=== PATIENT | female | born 1960 ===

== ENCOUNTER 2016-11-26 08:01 | Inpatient (IN) | payer BC ==
[2016-11-26 08:01] VITALS: BMI 27.1
[2016-11-26 10:14] LABS: BASO % 0.3 % (0.0-2.0); EOS % 0.3 % (0.0-4.0); LYMPH # 1.1 K/uL (1.0-4.3); LYMPH % 19.3 % (20.0-40.0); MEAN CELL VOLUME 87.3 fL (81.0-99.0); MEAN CORPUSCULAR HEMOGLOBIN 28.9 pg (27.0-31.0); MEAN CORPUSCULAR HGB CONC 33.1 g/dL (33.0-37.0); MEAN PLATELET VOLUME 8.1 fL (7.2-11.7); MONO # 0.4 K/uL (0.0-0.8); MONO % 6.2 % (0.0-10.0); RED CELL DISTRIBUTION WIDTH 14.3 % (11.5-14.5); WHITE BLOOD COUNT 5.9 K/uL (4.8-10.8)
--- NOTE | 2016-11-26 10:21 | RAD ---
PROCEDURE: CHEST RADIOGRAPH, 1 VIEW HISTORY: Abdominal pain COMPARISON: None available. FINDINGS: LUNGS: Clear. PLEURA: No pneumothorax or pleural fluid seen. CARDIOVASCULAR: Normal. OSSEOUS STRUCTURES: No significant abnormalities. VISUALIZED UPPER ABDOMEN: Normal. OTHER FINDINGS: None. IMPRESSION: No active disease.
[2016-11-26 10:23] LABS: CHLORIDE 97 mmol/L (98-107)
[2016-11-26 10:24] LABS: POTASSIUM 3.7 mmol/L (3.6-5.2); SODIUM 134 mmol/L (132-148)
[2016-11-26 10:26] LABS: ALB/GLOB RATIO 1.2 (1.0-2.1); ALKALINE PHOSPHATASE 90 U/L (38-126); ALT/SGPT 29 U/L (9-52); AST/SGOT 22 U/L (14-36); BILIRUBIN,TOTAL 0.6 mg/dL (0.2-1.3); BLOOD UREA NITROGEN 6 mg/dL (7-17); CARBON DIOXIDE 25 mmol/L (22-30); GFR AFRICAN-AMERICAN > 60; GLUCOSE,RANDOM 103 mg/dL (65-105); TOTAL PROTEIN 8.4 g/dL (6.3-8.3)
[2016-11-26 10:27] LABS: ALCOHOL SERUM < 10 mg/dl (0-10); CALCIUM 9.7 mg/dl (8.6-10.4)
[2016-11-26 10:40] LABS: RBC URINE 8 /hpf (0-3); URINE BILIRUBIN NEGATIVE (NEGATIVE); URINE BLOOD 1+ (NEGATIVE); URINE COLOR Yellow (YELLOW); URINE GLUCOSE (UA) NORMAL (Normal); URINE KETONE NEGATIVE (NEGATIVE); URINE LEUKOCYTE ESTERASE NEG Leu/uL (Negative); URINE PROTEIN NEGATIVE (NEGATIVE); URINE UROBILINOGEN NORMAL mg/dL (0.2-1.0); WBC URINE 2 /hpf (0-5)
[2016-11-26] MEDS ORDERED: Sodium Chloride 0.9% 1,000 ML IV ONE (10:50)
[2016-11-26] MEDS ORDERED: Sodium Chloride 0.9% 1,000 ML ONE (10:57)
--- NOTE | 2016-11-26 10:57 | C.PDOC ---
History Of Present Illness 56 year old female presents to the ED with complaints of intermittent difficulty swallowing, slight abdominal pain, mouth dryness, and vomiting liquids for one month. She is also seeking evaluation for depression and hearing voices for "awhile." Patient is a poor historian and not answering questions directly. states she has been hearing voices for several weeks. Patient denies dysuria, GI bleeding, fever, recent travel, back pain, chest pain, shortness of breath, diarrhea, or homicidal ideations. Time Seen by Provider: 11/26/16 08:15 Chief Complaint (Nursing): Psychiatric Evaluation History Per: Patient History/Exam Limitations: no limitations Onset/Duration Of Symptoms: Intermittent Episodes (one month of difficulty swallowing), Persistent (hearing voices and depression for "several weeks" ) Current Symptoms Are (Timing): Still Present Suicide/Self Injury Attempted (Context): None Modifying Factor(s): None Associated Symptoms: Depression, Suicidal Thoughts (hearing voices telling her to commit suicide ) Involuntary Hold By: None Recent travel outside of the [place]: No Additional History Per: Past Medical History Reviewed: Historical Data, Nursing Documentation, Vital Signs Vital Signs: Last Vital Signs Temp 96 F L 11/26/16 08:05 Pulse 76 11/26/16 08:05 Resp 18 11/26/16 08:08 BP 124/87 11/26/16 08:05 Pulse Ox 99 11/26/16 14:36 - Medical History PMH: Anxiety, Depression, Hypercholesterolemia Family History: States: Unknown Family Hx - Social History Hx Alcohol Use: No Hx Substance Use: No Review Of Systems Constitutional: Negative for: Fever, Chills Cardiovascular: Negative for: Chest Pain Respiratory: Negative for: Shortness of Breath Gastrointestinal: Positive for: Vomiting, Abdominal Pain. Negative for: Diarrhea, Constipation Genitourinary: Negative for: Dysuria Musculoskeletal: Negative for: Back Pain Psych: Positive for: Depression, Suicidal ideation Physical Exam - Physical Exam Appears: Non-toxic, No Acute Distress Skin: Warm, Dry Head: Atraumatic, Normacephalic Eye(s): bilateral: Normal Inspection, PERRL, EOMI Ear(s): Bilateral: Normal Oral Mucosa: Moist Throat: Normal, No Erythema, No Exudate Neck: Supple Chest: Symmetrical, No Deformity Cardiovascular: Rhythm Regular, No Murmur Respiratory: No Rales, No Rhonchi, No Wheezing, Other (clear to auscultation bilaterally ) Gastrointestinal/Abdominal: Soft, No Tenderness, No Distention, No Guarding, No Rebound Extremity: Normal ROM, No Tenderness Neurological/Psych: Oriented x3 ED Course And Treatment - Laboratory Results Result Diagrams: 11/26/16 10:04 11/26/16 10:04 O2 Sat by Pulse Oximetry: 99 (RA) Progress Note: Abdomen pelvis CT and labs were ordered. Patient was given Pepcid , Toradol, Zofran, and IV fluids. Medical Decision Making Medical Decision Making: CT scan and lab work negative. Patient is medically cleared for psych evaluation and possible admission. On re-exam, the patient has no abdominal pain. Abdomen is soft, non-tender and patient is tolerating PO well Disposition - Disposition Disposition: HOSPITALIZED Disposition Time: 14:52 Condition: GOOD Forms: [facility] (Turkish) - Clinical Impression Clinical Impression: Schizophrenia, Moderate major depression, single episode - PA / CERTIFIED ORTHOTIC FITTER / Resident Statement MD/DO has reviewed & agrees with the documentation as recorded. - Scribe Statement The provider has reviewed the documentation as recorded by the Scribpilo Herring All medical record entries made by the Valarieibpilo were at my direction and personally dictated by me. I have reviewed the chart and agree that the record accurately reflects my personal performance of the history, physical exam, medical decision making, and the department course for this patient. I have also personally directed, reviewed, and agree with the discharge instructions and disposition.
[2016-11-26] MEDS ORDERED: Iodixanol 320 MG/ML 100 ML BOTTLE IV ONE (13:52)
--- NOTE | 2016-11-26 14:32 | CT ---
PROCEDURE: CT Abdomen and Pelvis with contrast HISTORY: epigastric abd pain, vomiting COMPARISON: None. TECHNIQUE: Contrast dose: Visipaque 320, 100 cc. Radiation dose: Total exam DLP = 298.46 mGy-cm. This CT exam was performed using one or more of the following dose reduction techniques: Automated exposure control, adjustment of the mA and/or kV according to patient size, and/or use of iterative reconstruction technique. FINDINGS: LOWER THORAX: Unremarkable. LIVER: Moderate hepatic steatosis is appreciate without discrete hepatic mass or significant intrahepatic biliary dilatation appreciated. GALLBLADDER AND BILE DUCTS: Unremarkable. PANCREAS: Unremarkable. No gross lesion or ductal dilatation. SPLEEN: Unremarkable. ADRENALS: 1.2 cm moderately lucent lesion is seen related to the medial limb of the right adrenal gland 31 Hounsfield units. This is higher than can be ascribed to a definite benign adrenal adenoma and follow-up MRI is advised on elective basis. The left adrenal gland appears normal. KIDNEYS AND URETERS: Unremarkable. No hydronephrosis. No solid mass. VASCULATURE: Unremarkable. No aortic aneurysm. BOWEL: The stomach is collapsed and poorly evaluated. No bowel obstruction. No gross mural thickening. APPENDIX: Normal appendix. PERITONEUM: Unremarkable. No free fluid. No free air. LYMPH NODES: Unremarkable. No enlarged lymph nodes. BLADDER: Unremarkable. REPRODUCTIVE: Unremarkable. BONES: No acute fracture. OTHER FINDINGS: None. IMPRESSION: No definite acute abdomen or pelvic findings by standard CT criteria. Lack oral contrast limits evaluation, particularly of the bowel. 1.2 cm right adrenal nodule is appreciated which is indeterminate. Follow-up MRI is advised on elective basis. Hepatic steatosis.
--- NOTE | 2016-11-26 16:35 | PCM.BM ---
<Johanny Junior M - Last Filed: 11/26/16 16:33> Treatment Plan Problems - Problems identified on initial assessmt Depression Date Initiated: 11/26/16 Time Initiated: 16:34 Assessment reference: NA Status: Active Treatment assets and liabiliti Patient Assests: adapts well, cooperative, negotiates basic needs, cognitively intact Patient Liabilities: financial problems - Milieu Protocol Maintain good personal hygiene: daily Encourage regular showers, daily Remind patient to perform daily oral care Conduct patient checks and document Observation sheet: Q15 minutes Maintain personal safety: every shift Educate patient to report safety concerns to staff, every shift Monitor environment for contraband/sharps Medication safety: Monitor for expected outcome, potential side effects: every shift, Assess barriers to learning: every shift, Assess readiness for medication education: every shift <Twyla Chris - Last Filed: 11/27/16 11:01> - Diagnosis (1) Major depressive disorder, single episode, severe, with psychosis Status: Acute Interventions: 11/27/16 11:01 * Assess/adjust medications daily and /or as needed * See patient on an individual basis 7x/week to assess level of depressive behaviors and hallucinations. * Discuss risks, benefits, side effects and alternatives of medications <Carrol Bernal - Last Filed: 11/27/16 11:05> Family Contact Family involvement: Family/SO is involved Family contact: Patient agrees to contact Family contact name: Zarina- Family contacted how many times per week?: 1 - Goals for Treatment Patient goals for treatment: "I want to see the therapist." Discharge/Continuing Care - Education Needs Education Needs: Family Nutrition, Patient Medication, Patient Coping Skills, Significant Other Personal Hygiene/Grooming - Discharge Discharge Criteria: Tolerates medication w/o severe side effects, Free of Suicidal thoughts, Reduction of target symptoms Discharge to:: Home, With Family - Treatment Team Participation Discussed with Family/SO: Yes Was Patient/Family/SO present at Treatment Team Meeting: Yes <Mars Olson - Last Filed: 11/29/16 11:53> - Diagnosis (1) Major depressive disorder, single episode with psychotic features Status: Acute Interventions: Assess/adjust medications daily and/or as needed SEE patient on him individual basis 7x/week to assess status of hallucinations. Discuss risks, benefits, side effects and alternatives of medications. 11/29/16 11:53
--- NOTE | 2016-11-27 11:01 | PCM.PSYCH ---
Initial Psychiatric Evaluation - Initial Psychiatric Evaluation Type of Admission: Voluntary Legal Status: Capacity Chief Complaint (in patient's own words): "I have feeling sad and down lately" Patient's Reaction to Hospitalization: Cooperative History of Present Illness and Precipitating Events: Pt is a 57 year old female with a PMH of High cholesterol and Depression that presented to the ED on 11/26/2016 for a depressed mood and hearing voices telling her to harm self. Pt is and has 4 children ages 30, 29, 20 and 18. She lives at home with her and children and is currently unemployed. Pt reports that she has been feeling "sad and down" for the last 20 days. She reports that she has had a decreased appetite with a weight loss of approximately 20 pounds and not sleeping well for the past few nights. She also reports that she did not mention her symptoms to her family but yesterday when she was speaking to a friend she reports "something told me to take my life", and it was then that she shared her symptoms with her who brought her to the ER. Pt reports that she was first diagnosed with depression at the age of [age] years old when she felt similar symptoms, however, this all occurred in [place] [facility]. Pt states that currently she follows up with her PCP who prescribes Lexapro 20mg for her depression. Pt denies other psychiatric admission or following up with a psychiatrist. She reports stopping her Lexapro approximately 3 months ago when she felt much better and her mood was good. However, 20 days ago she returned to her PCP upon the onset of her current symptoms and although she was prescribed Lexapro she did not take it because "I was afraid of the side effects". Pt currently denies any SI, hallucinations or hearing voices. Pt denies alcohol , tobacco and substance use. After care discussed. Pt states that she has no plans or thoughts of harming herself "since I love my family". Pt is interested in following up with a psychiatrist, continue her medications and a program such as [facility] where she can follow up with therapy and/or a counselor. Pt is encouraged to do so. Current Medications: Active Medications Generic Name Dose Route Start Last Admin Trade Name Freq PRN Reason Stop Dose Admin Diphenhydramine HCl 50 mg 11/26/16 18:30 Benadryl PO Q8 PRN Insomnia Hydroxyzine HCl 25 mg 11/26/16 18:30 11/26/16 20:15 Atarax PO 25 mg Q6 PRN Administration Anxiety Ibuprofen 600 mg 11/26/16 18:30 Motrin Tab PO Q6 PRN Pain, moderate (4-7) Ondansetron HCl 4 mg 11/26/16 18:30 Zofran Tab PO Q6 PRN Nausea/Vomiting Past Psychiatric History - Past Psychiatric History Previous Treatment History: None Pertinent Medical Hx (Current Medical&Sleep Prob, Allergies): Allergies Allergy/AdvReac Type Severity Reaction Status Date / Time No Known Allergies Allergy Verified 11/26/16 08:06 Escitalopram [Lexapro] 20 mg PO DAILY 11/26/16 Review of Systems - Review of Systems All systems: reviewed and no additional remarkable complaints except - Neurological Neurological: UNREMARKABLE - Psychiatric Psychiatric: Anxiety, Auditory Hallucinations, Depression, Irritability, Paranoia, Suicidal Ideation. absent: Hallucinations, Homicidal Ideation Mental Status Examination - Personal Presentation Personal Presentation: Looks stated age - Affect Affect: Constricted, Depressed - Motor Activity Motor Activity: Calm - Reliability in Providing Information Reliability in Providing Information: Good - Speech Speech: Organized, Relevant, Coherent - Mood Mood: Depressed - Formal Thought Process Formal Thought Process: Hallucinations, Paranoia - Hallucinations/Delusions Hallucinations: Auditory Delusions: Persecution - Obsessions/Compulsions Obsessions: No Compulsions: No - Cognitive Functions Orientation: Person, Place, Situation, Time Sensorium: Alert Attention/Concentration: Attentive Abstract Thinking: Blanco Estimate of Intelligence: Average Judgement: Imparied, as evidence by: Poor judgement, Imparied, as evidence by: Lack of insight into illness Memory: Recent intact, as evidence by: Ability to recall events of the day, Remote intact, as evidenced by: Abilit to recall sig. life events - Risk Risk: Suicidal, Diminished functioning - Strength & Assets Inventory Strength & Assets Inventory: Intelligence, Family support, Skills, Spiritual affiliations, Cooperative DSM 5 DX - DSM 5 DSM 5 Diagnosis: Major depressive disorder single episode severe with psychotic features - Recommended/Plan of Treatment Treatment Recommendations and Plan of Treatment: Major depressive disorder single episode severe with psychotic features Cogentin 1mg PO HS EJSSICA Atarax 25mg PO Q6 PRN Risperidone 1 mg PO HS JESSICA Sertraline 50mg PO DAILY Trazodone 50mg PO HS JESSICA Attend groups and activities Individual therapy Psychoeducation and support Encourage compliance with meds and after care Refer to outpatient program Teach healthy lifestyle methods, i.e. diet, exercise, meditation 32 mins Projected ELOS: 4-5 days Prognosis: Good with treatment
--- NOTE | 2016-11-28 11:35 | PCM.PYCHPN ---
Psychiatric Progress Note - Psychiatric Progress Note Patient seen today, length of contact: 17 mins Patient Chief Complaint: "I am feeling a little better" Problems Identified/Issues Discussed: The pt is seen, chart reviewed, case discussed with staff. Pt states that she slept well last night and has seen no problems with her medications. Her only complaint is that her appetite is low and has not been eating very much. Denies SI and hallucinations. Support given, CBT and MT used briefly No new symptoms reported, improving slowly and needs more time No SEs from medications, risks discussed. After care discussed. Pt wants to follow up at the [facility] in order to see both a psychiatrist and a therapist. Pt is encouraged to do so. Medication Change: No Medical Record Reviewed: Yes Mental Status Examination - Cognitive Function Orientation: Person, Place, Situation, Time Memory: Intact Attention: WNL Concentration: WNL Association: WNL Fund of Knowledge: WNL - Mood Mood: Depressed - Affect Affect: Constricted, Depressed - Speech Speech: Appropriate - Formal Thought Process Formal Thought Process: No Impairment - Suicidal Ideation Suicidal Ideation: No - Homicidal Ideation Homicidal Ideation: No Goal/Treatment Plan - Goal/Treatment Plan Need for Continued Stay: Remain at risks for inpatient hospitalization, Discharge may exacerbated symptoms Progress Toward Problem(s) and Goals/Treatment Plan: Continue all medications as needed Attend groups and activities Individual therapy Psychoeducation and support Encourage compliance with meds and after care Refer to outpatient program Teach healthy lifestyle methods, i.e. diet, exercise, meditation 17 mins
--- NOTE | 2016-11-29 11:56 | PCM.PYCHPN ---
Psychiatric Progress Note - Psychiatric Progress Note Patient seen today, length of contact: 15 minutes Patient Chief Complaint: I'm feeling better Problems Identified/Issues Discussed: Patient seen. Chart reviewed. Case discussed with the staff. Issues related to illness and treatment were discussed with the patient. Reported compliant with treatment with no adverse affects. Tolerating treatment very well. Reported feeling better, better mood, better sleep and appetite. At the time of evaluation, patient was awake alert oriented 3, had no delusions , no auditory visual hallucinations, no suicidal ideations or homicidal ideations. Medical Problems: None reported Diagnostic Results: Reviewed DSM 5 Symptoms Update: Improving with treatment Medication Change: Yes (Dose of sertraline increased to 100 mg daily) Medical Record Reviewed: Yes Mental Status Examination - Cognitive Function Orientation: Person, Place, Situation, Time Memory: Intact Attention: WNL Concentration: WNL Association: WNL Fund of Knowledge: WN Decription of patient's judgement and insights: Fair - Mood Mood: Depressed (Less than before) - Affect Affect: Depressed - Speech Speech: Appropriate - Formal Thought Process Formal Thought Process: No Impairment Psychotic Thoughts and Behaviors: None - Suicidal Ideation Suicidal Ideation: No - Homicidal Ideation Homicidal Ideation: No Goal/Treatment Plan - Goal/Treatment Plan Need for Continued Stay: Remain at risks for inpatient hospitalization, Discharge may exacerbated symptoms, Severe functional impairment Progress Toward Problem(s) and Goals/Treatment Plan: Patient education Supportive therapy Dose of sertraline increased to 100 mg for 50 mg daily. Continue rest of the treatment as before. Estimated Date of D/C: 12/04/16 - Smoking Cessation Smoking Cessation Initiated: No
--- NOTE | 2016-11-30 20:36 | PCM.PYCHPN ---
Psychiatric Progress Note - Psychiatric Progress Note Patient seen today, length of contact: 15 minutes Patient Chief Complaint: I'm praying a lot and asking God to help me Problems Identified/Issues Discussed: Patient was seen. Chart was reviewed important content noted. Nurse input received that pt is religiously preoccupied and continuously praying. Pt stated that she is compliant with medications. she stated that she is asking help from God. She reproted improvement in her depressive symptoms. She needs to stay in hospital for stabilization of mood. Patient slept well and is eating well. Denies suicidal or homicidal ideation. Patient does not report hallucinations. Patient has remained in good clinical and behavioral control. Patient is finding medications beneficial and would like to continue with treatment plan. Patient appreciated that treatment team is trying to help Diagnostic Results: lab reviewed DSM 5 Symptoms Update: MDD Severe, with psychotic features Medication Change: Yes (Dose of sertraline increased to 100 mg daily) Medical Record Reviewed: Yes Mental Status Examination - Cognitive Function Orientation: Person, Place, Situation, Time Memory: Intact Attention: WNL Concentration: WNL Association: WNL Fund of Knowledge: WNL - Mood Mood: Depressed (Less than before) - Affect Affect: Constricted, Depressed - Speech Speech: Appropriate - Formal Thought Process Formal Thought Process: Other (she is religiously preoccupied) - Suicidal Ideation Suicidal Ideation: No - Homicidal Ideation Homicidal Ideation: No Goal/Treatment Plan - Goal/Treatment Plan Need for Continued Stay: Remain at risks for inpatient hospitalization, Discharge may exacerbated symptoms, Severe functional impairment Progress Toward Problem(s) and Goals/Treatment Plan: Continue current management and medications. Attend groups and activities Individual therapy Patient educated about risks, benefits, side effects & alternatives of meds. Pt verbalized understanding & agreed with the above. Therapy in milieu. Estimated Date of D/C: 12/04/16 - Smoking Cessation Smoking Cessation Initiated: Yes
--- NOTE | 2016-12-01 18:49 | PCM.PYCHPN ---
Psychiatric Progress Note - Psychiatric Progress Note Patient seen today, length of contact: 15 minutes Patient Chief Complaint: I have difficulty in sleep Problems Identified/Issues Discussed: Patient was seen. Chart was reviewed important content noted. Nurse input received that pt is religiously preoccupied and continuously praying. Pt stated that she is compliant with medications. she stated that she is asking help from God. She reported improvement in her depressive symptoms, but still had difficulty in sleep. She needs to stay in hospital for stabilization of mood. Patient is eating well. Denies suicidal or homicidal ideation. Patient does not report hallucinations. Patient has remained in good clinical and behavioral control. Patient is finding medications beneficial and would like to continue with treatment plan. Patient appreciated that treatment team is trying to help Diagnostic Results: lab reviewed DSM 5 Symptoms Update: MDD Severe, single with psychotic features Medication Change: Yes (INCREASE RISPERDAAL 2 MG PO HS) Medical Record Reviewed: Yes Mental Status Examination - Cognitive Function Orientation: Person, Place, Situation, Time Memory: Intact Attention: WNL Concentration: WNL Association: WNL Fund of Knowledge: WNL - Mood Mood: Depressed (Less than before) - Affect Affect: Constricted, Depressed - Speech Speech: Appropriate - Formal Thought Process Formal Thought Process: Other (she is religiously preoccupied) - Suicidal Ideation Suicidal Ideation: No - Homicidal Ideation Homicidal Ideation: No Goal/Treatment Plan - Goal/Treatment Plan Need for Continued Stay: Remain at risks for inpatient hospitalization, Discharge may exacerbated symptoms, Severe functional impairment Progress Toward Problem(s) and Goals/Treatment Plan: Continue current management and medications except increase Risperdal 2 mg po HS. Attend groups and activities Individual therapy Patient educated about risks, benefits, side effects & alternatives of meds. Pt verbalized understanding & agreed with the above. Therapy in milieu. Estimated Date of D/C: 12/04/16
--- NOTE | 2016-12-02 16:49 | PCM.PYCHPN ---
Psychiatric Progress Note - Psychiatric Progress Note Patient seen today, length of contact: 15 minutes Patient Chief Complaint: I'm feeling better Problems Identified/Issues Discussed: Patient seen. Chart reviewed. Case discussed with the staff. Issues related to illness and treatment were discussed with the patient. Reported compliant with treatment with no adverse affects. Tolerating treatment very well. Reported feeling better, better mood, better sleep and appetite. At the time of evaluation, patient was awake alert oriented 3, had no delusions , no auditory visual hallucinations, no suicidal ideations or homicidal ideations. Medical Problems: None reported Diagnostic Results: Reviewed DSM 5 Symptoms Update: Improving with treatment Medication Change: No Medical Record Reviewed: Yes Mental Status Examination - Cognitive Function Orientation: Person, Place, Situation, Time Memory: Intact Attention: WNL Concentration: WNL Association: WNL Fund of Knowledge: [facility] Decription of patient's judgement and insights: Fair - Mood Mood: Depressed (Much less than before) - Affect Affect: Other (Appropriate) - Speech Speech: Appropriate - Formal Thought Process Formal Thought Process: No Impairment, Other (she is religiously preoccupied) Psychotic Thoughts and Behaviors: None - Suicidal Ideation Suicidal Ideation: No - Homicidal Ideation Homicidal Ideation: No Goal/Treatment Plan - Goal/Treatment Plan Need for Continued Stay: Remain at risks for inpatient hospitalization, Discharge may exacerbated symptoms, Severe functional impairment Progress Toward Problem(s) and Goals/Treatment Plan: Patient education Supportive therapy Continue treatment as before Patient will go to [facility] for follow-up care after discharge from the hospital Estimated Date of D/C: 12/03/16 - Smoking Cessation Smoking Cessation Initiated: No
--- NOTE | 2016-12-03 14:12 | PCM.PYCHPN ---
Psychiatric Progress Note - Psychiatric Progress Note Patient seen today, length of contact: 15 minutes Patient Chief Complaint: I'm feeling Little better Problems Identified/Issues Discussed: Patient seen. Chart reviewed. Case discussed with the staff. Issues related to illness and treatment were discussed with the patient. Reported compliant with treatment with no adverse affects. Tolerating treatment very well. Reported feeling Little better, better mood, better sleep and appetite. patient is still religiously preoccupied Will increase the dose of Risperdal to 3 mg at bedtime from 2 mg. needs more time for stabilization At the time of evaluation, patient was awake alert oriented 3, had no delusions , no auditory visual hallucinations, no suicidal ideations or homicidal ideations. Medical Problems: None reported Diagnostic Results: Reviewed DSM 5 Symptoms Update: some improvement with treatment Medication Change: Yes (dose of Risperdal increased to 3 mg at bedtime) Medical Record Reviewed: Yes Mental Status Examination - Cognitive Function Orientation: Person, Place, Situation, Time Memory: Intact Attention: WNL Concentration: WNL Association: WNL Fund of Knowledge: [facility] Decription of patient's judgement and insights: Fair - Mood Mood: Depressed (Much less than before) - Affect Affect: Other (Appropriate) - Speech Speech: Appropriate - Formal Thought Process Formal Thought Process: Other (she is religiously preoccupied) Psychotic Thoughts and Behaviors: patient religiously preoccupied - Suicidal Ideation Suicidal Ideation: No - Homicidal Ideation Homicidal Ideation: No Goal/Treatment Plan - Goal/Treatment Plan Need for Continued Stay: Remain at risks for inpatient hospitalization, Discharge may exacerbated symptoms, Severe functional impairment Progress Toward Problem(s) and Goals/Treatment Plan: Patient education Supportive therapy Will increase the dose of Risperdal to 3 mg at bedtime Continue rest of the treatment as before Patient will go to [facility] for follow-up care after discharge from the hospital Estimated Date of D/C: 12/05/16 - Smoking Cessation Smoking Cessation Initiated: No
--- NOTE | 2016-12-04 10:34 | PCM.BM ---
<Carrol Bernal - Last Filed: 12/04/16 10:33> Treatment Plan Problems - Problems identified on initial assessmt Depression Date Initiated: 11/26/16 Time Initiated: 16:34 Assessment reference: NA Status: Active Treatment assets and liabiliti Patient Assests: adapts well, cooperative, negotiates basic needs, cognitively intact Patient Liabilities: financial problems - Milieu Protocol Maintain good personal hygiene: daily Encourage regular showers, daily Remind patient to perform daily oral care Conduct patient checks and document Observation sheet: Q15 minutes Maintain personal safety: every shift Educate patient to report safety concerns to staff, every shift Monitor environment for contraband/sharps Medication safety: Monitor for expected outcome, potential side effects: every shift, Assess barriers to learning: every shift, Assess readiness for medication education: every shift Milieu Narrative: Patient education Supportive therapy Will increase the dose of Risperdal to 3 mg at bedtime Continue rest of the treatment as before Patient will go to [facility] for follow-up care after discharge from the hospital Family Contact Family involvement: Family/SO is involved Family contact: Patient agrees to contact Family contact name: Zarina- Family contacted how many times per week?: 1 - Goals for Treatment Patient goals for treatment: "I want to see the therapist." Discharge/Continuing Care - Education Needs Education Needs: Family Nutrition, Patient Medication, Patient Coping Skills, Significant Other Personal Hygiene/Grooming - Discharge Discharge Criteria: Tolerates medication w/o severe side effects, Free of Suicidal thoughts, Reduction of target symptoms Discharge to:: Home, With Family - Treatment Team Participation Patient/Family/SO Statement: Patient education Supportive therapy Will increase the dose of Risperdal to 3 mg at bedtime Continue rest of the treatment as before Patient will go to [facility] for follow-up care after discharge from the hospital Discussed with Family/SO: Yes Was Patient/Family/SO present at Treatment Team Meeting: Yes Treatment Plan Review Patient participation: Yes Family/SO/Caregiver participation: No - Problem Depression Date Initiated: 12/04/16 Time Initiated: 10:34 Progress toward outcomes: unchanged <Mars Olson - Last Filed: 12/04/16 12:48> - Diagnosis (1) Major depressive disorder, single episode with psychotic features Status: Acute Interventions: Assess/adjust medications daily and/or as needed SEE patient on him individual basis 7x/week to assess status of hallucinations. Discuss risks, benefits, side effects and alternatives of medications. 12/04/16 12:48 <Una Silveira - Last Filed: 12/05/16 07:58> Treatment Plan Review - Discharge / Continuing Care Behavioral Health Services: Outpatient therapy Health Needs: Medications/Rx
--- NOTE | 2016-12-04 12:53 | PCM.PYCHPN ---
Psychiatric Progress Note - Psychiatric Progress Note Patient seen today, length of contact: 15 minutes Patient Chief Complaint: I'm feeling Little better Problems Identified/Issues Discussed: Patient seen. Chart reviewed. Case discussed with the staff. Issues related to illness and treatment were discussed with the patient. Reported compliant with treatment with no adverse affects. Tolerating treatment very well. Reported feeling Little better, better mood, better sleep and appetite. patient is still religiously preoccupied and also appeared internally preoccupied, laughing inappropriately. We will start Risperdal 2 mg in the morning also in addition to Risperdal 3 mg at bedtime. Also will increase the dose of Cogentin to 1 mg twice a day from 1 mg at bedtime. needs more time for stabilization At the time of evaluation, patient was awake alert oriented 3, had no delusions , no auditory visual hallucinations, no suicidal ideations or homicidal ideations. Medical Problems: None reported Diagnostic Results: Reviewed Medication Change: Yes (Added Risperdal 2 mg in the morning and dose of Cogentin increased to 1 mg ) Medical Record Reviewed: Yes Mental Status Examination - Cognitive Function Orientation: Person, Place, Situation, Time Memory: Intact Attention: WNL Concentration: WNL Association: [facility] Fund of Knowledge: [facility] Decription of patient's judgement and insights: Fair - Mood Mood: Depressed (Much less than before) - Affect Affect: Blunted - Speech Speech: Appropriate - Formal Thought Process Formal Thought Process: Other (she is religiously preoccupied) Psychotic Thoughts and Behaviors: patient religiously preoccupied - Suicidal Ideation Suicidal Ideation: No - Homicidal Ideation Homicidal Ideation: No Goal/Treatment Plan - Goal/Treatment Plan Need for Continued Stay: Remain at risks for inpatient hospitalization, Discharge may exacerbated symptoms, Severe functional impairment Progress Toward Problem(s) and Goals/Treatment Plan: Patient education Supportive therapy We will start Risperdal 2 mg in the morning in addition to Risperdal 3 mg at bedtime. We will also increase the dose of Cogentin to 1 mg twice a day from 1 mg at bedtime. Continue rest of the treatment as before Patient will go to [facility] for follow-up care after discharge from the hospital Estimated Date of D/C: 12/09/16 - Smoking Cessation Smoking Cessation Initiated: No
[2016-12-05 07:21] VITALS: TEMP 98.1
--- NOTE | 2016-12-05 12:21 | PCM.PYCHPN ---
Psychiatric Progress Note - Psychiatric Progress Note Patient seen today, length of contact: 15 minutes Patient Chief Complaint: I'm feeling Little better. Problems Identified/Issues Discussed: Patient seen. Chart reviewed. Case discussed with the staff. Issues related to illness and treatment were discussed with the patient. Reported compliant with treatment with no adverse affects. Tolerating treatment very well. Reported feeling Little better, better mood, better sleep and appetite. patient is still religiously preoccupied and also appeared internally preoccupied, laughing inappropriately. Still isolative. Needs more time for stabilization At the time of evaluation, patient was awake alert oriented 3, had no delusions , no auditory visual hallucinations, no suicidal ideations or homicidal ideations. Medical Problems: None reported Diagnostic Results: Reviewed DSM 5 Symptoms Update: Some improvement with treatment Medication Change: No Medical Record Reviewed: Yes Mental Status Examination - Cognitive Function Orientation: Person, Place, Situation, Time Memory: Intact Attention: WNL Concentration: WNL Association: WNL Fund of Knowledge: [facility]N Decription of patient's judgement and insights: Fair - Mood Mood: Depressed (Much less than before) - Affect Affect: Blunted - Speech Speech: Appropriate - Formal Thought Process Formal Thought Process: Other (she is religiously preoccupied) Psychotic Thoughts and Behaviors: Patient is religiously and internally preoccupied - Suicidal Ideation Suicidal Ideation: No - Homicidal Ideation Homicidal Ideation: No Goal/Treatment Plan - Goal/Treatment Plan Need for Continued Stay: Remain at risks for inpatient hospitalization, Discharge may exacerbated symptoms, Severe functional impairment Progress Toward Problem(s) and Goals/Treatment Plan: Patient education Supportive therapy Continue treatment as before Patient will go to [facility] for follow-up care after discharge from the hospital Estimated Date of D/C: 12/09/16 - Smoking Cessation Smoking Cessation Initiated: No
[2016-12-06 07:40] VITALS: BP 129/81; PULSE 90; RESP 20; O2SAT 97
--- NOTE | 2016-12-07 13:56 | PCM.PYCHDC ---
Mental Status Examination - Mental Status Examination Orientation: Person, Place, Situation, Time Memory: Intact Mood: Neutral Affect: Other (Appropriate) Speech: Appropriate Attention: WNL Concentration: WNL Association: WNL Fund of Knowledge: WNL Formal Thought Process: No Impairment Description of patient's judgement and insight: Fair Psychotic Thoughts and Behaviors: None Suicidal Ideation: No Current Homicidal Ideation?: No Discharge Summary - Discharge Note Reason for Hospitalization: Depression Laboratory Data: Reviewed Consultations:: List each consultation separately and include: 1. Reason for request. 2. Findings. 3. Follow-up Summary of Hospital Course include:: 1. Description of specific treatment plan utilized for patients during their course of treatmen. 2. Summarize the time- course for resolution of acute symptoms and/or regressed behaviors. 3. Describe issues identified and worked on during hospitalization. 4. Describe medication utilized. 5. Describe medical problems identified and treated. 6. Reassessment of suicide risk Summary of Hospital Course: Pt is a 57 year old female with a PMH of High cholesterol and Depression that presented to the ED on 11/26/2016 for a depressed mood and hearing voices telling her to harm self. Pt is and has 4 children ages 30, 29, 20 and 18. She lives at home with her and children and is currently unemployed. Pt reports that she has been feeling "sad and down" for the last 20 days. She reports that she has had a decreased appetite with a weight loss of approximately 20 pounds and not sleeping well for the past few nights. She also reports that she did not mention her symptoms to her family but yesterday when she was speaking to a friend she reports "something told me to take my life", and it was then that she shared her symptoms with her who brought her to the ER. Pt reports that she was first diagnosed with depression at the age of [age] years old when she felt similar symptoms, however, this all occurred [place]. Pt states that currently she follows up with her PCP who prescribes Lexapro 20mg for her depression. Pt denies other psychiatric admission or following up with a psychiatrist. She reports stopping her Lexapro approximately 3 months ago when she felt much better and her mood was good. However, 20 days ago she returned to her PCP upon the onset of her current symptoms and although she was prescribed Lexapro she did not take it because "I was afraid of the side effects". Pt currently denies any SI, hallucinations or hearing voices. Pt denies alcohol , tobacco and substance use. After care discussed. Pt states that she has no plans or thoughts of harming herself "since I love my family". Pt is interested in following up with a psychiatrist, continue her medications and a program such as [facility] where she can follow up with therapy and/or a counselor. Pt is encouraged to do so. During her stay in the hospital, patient was treated with Risperdal. Dose of Risperdal increased gradually. Patient was also treated with sertraline and other when necessary medications. With the above treatment patient started feeling better. Today patient was stable and ready for discharge. Before discharge, had family meeting with patient, patient's daughter and son, psychiatrist and social media designer. At the time of evaluation and discharge, patient was awake alert oriented 3, had no delusions, no auditory or visual hallucinations, no suicidal ideations or homicidal ideations. Patient was discharged in a stable condition with family. Patient was discharged on 12/06/2016. - Diagnosis (1) Major depressive disorder, single episode with psychotic features Status: Acute - Final Diagnosis (DSM 5) Condition upon Discharge: GOOD Disposition: HOME/ ROUTINE Follow-up Treatment Plan: Patient will go to [facility] for follow-up care after discharge from the hospital Prescriptions/Medication Reconciliation: Benztropine [Cogentin] 1 mg PO BID #60 tab risperiDONE [RisperDAL Tab] 3 mg PO BID #60 tab Sertraline [Zoloft] 100 mg PO DAILY #30 tab traZODone [Desyrel] 50 mg PO HS #30 tab - Smoking Cessation Smoking Cessation Medication prescribed: No - Antipsychotic Medications Pt discharged on 2 or more routine antipsychotic medications: No
== END 2016-12-06 11:40 | disposition home or self-care (01) | DRG 885 ==
LOC: C.ER 08:01 → C.9E 14:52 → C.5E 15:38
PROVIDERS: ADMIT Psychiatry & Neurology Psychiatry; ATTEND Psychiatry & Neurology Psychiatry
PROC: GZ56ZZZ Individual Psychotherapy, Supportive (ICD-10-PCS; principal; 2016-11-26)
DX: F32.3 Major depressive disorder, single episode, severe with psychotic features (principal); R13.10 Dysphagia, unspecified; E78.00 Pure hypercholesterolemia, unspecified